=== PATIENT | female | born 1985 | race Caucasian/White ===

== ENCOUNTER 2020-02-03 00:06 | Inpatient (IN) | payer OTHER ==
[~2020-02-03] VITALS: Ht 165.1 cm; Wt 74.0 kg
[~2020-02-03 00:06] MED LIST: AUGMENTIN 875-1 EACH PO; BACTRIM DS TAB1 EACH PO; CIPROFLOXACIN500 MG PO; KEFLEX500 MG PO; SEPTRA DS TABL1 EACH PO
[2020-02-03] MEDS ORDERED: NICOTINE PATCH1 EAC1 TD (01:04)
[2020-02-03] MEDS ORDERED: PROZAC20 MG PO (01:05)
--- NOTE | 2020-02-03 13:17 | PR ---
[facility] [address] [place], [place] [address] Signed Progress Notes IP Datetime Report Generated by CPN: 02/03/2020 13:17 PROGRESS NOTES: [id number] Procedures: Intrauterine Pressure Catheter; Scalp Electrode Plan: Continue present management; Anticipate Vaginal Delivery VITAL SIGNS: [id number] Vital Signs: Reviewed; Within Normal Limits EXAM: [id number] Dilatation: 4.0 Effacement: 100 Station: -2 Uterine Contractions: every 2-3 minutes MEMBRANES: [id number] Membrane Status: Bulging Amniotic Fluid Color: Bloody ROM Note: SROM after previous exam, fluid with slight blood tinge Comments: Comfortable with Ep'idural. Some decreased variabilituy occasional decels, so internal monitors applied and will continue close monitoring Fetus A: [id number] FHR Baseline: 145 Variability: Moderate 6-25bpm Accelerations: 10X10 Presentation: Vertex Fetus B: [id number] Signing Physician: Jase Lopez MD Copies: ~ *Electronically Signed* 02/03/20 1317 JASE LOPEZ MD PATIENT NAME: KYREE BUTT ADELINE PROGRESS NOTE DATE OF : 83 PHYSICIAN: JASE LOPEZ MD RPT #: [id number] REPORT IS CONFIDENTIAL AND NOT TO BE RELEASED WITHOUT AUTHORIZATION
--- NOTE | 2020-02-03 14:57 | PR ---
[facility] [address] [place], [place] [address] Signed Progress Notes IP Datetime Report Generated by CPN: 02/03/2020 14:57 PROGRESS NOTES: [id number] Impression: Normal progression of labor Procedures: Intrauterine Pressure Catheter; Scalp Electrode Plan: Continue present management; Anticipate Vaginal Delivery VITAL SIGNS: [id number] Vital Signs: Reviewed; Within Normal Limits EXAM: [id number] Dilatation: 6.0 Effacement: 100 Station: -2 Uterine Contractions: every 2-4 minutes MEMBRANES: [id number] Membrane Status: Ruptured Amniotic Fluid Color: Clear ROM Note: SROM after previous exam, fluid with slight blood tinge Comments: Comfortable with Epidural, havign decreaed variability with occasional late decels, givne O2 by NC. Now normal variability with some accelerations and continuing to make progress; will continue close monitoring, trying different positions. Fetus A: [id number] FHR Baseline: 145 Variability: Moderate 6-25bpm Accelerations: 10X10 Presentation: Vertex Comments on Fetus A: prior decreased variability and occasional late decels Fetus B: [id number] Signing Physician: Herminio Lopez MD Copies: ~ *Electronically Signed* 02/03/20 1457 HERMINIO LOPEZ MD PATIENT NAME: KYREE BUTT PROGRESS NOTE DATE OF : 83 PHYSICIAN: HERMINIO LOPEZ MD RPT #: [id number] REPORT IS CONFIDENTIAL AND NOT TO BE RELEASED WITHOUT AUTHORIZATION
--- NOTE | 2020-02-03 19:24 | PR ---
[facility] [place] [facility] [address] [facility] [place], [place] [address] Signed Progress Notes IP Datetime Report Generated by CPN: 02/03/2020 19:23 PROGRESS NOTES: [id number] Impression: Normal progression of labor Procedures: Intrauterine Pressure Catheter; Scalp Electrode Plan: Anticipate Vaginal Delivery VITAL SIGNS: [id number] Vital Signs: Reviewed; Within Normal Limits EXAM: [id number] Dilatation: 10.0 Effacement: 100 Station: 0 Uterine Contractions: every 2-4 minutes MEMBRANES: [id number] Membrane Status: Ruptured Amniotic Fluid Color: Clear ROM Note: SROM after previous exam, fluid with slight blood tinge Comments: Comfortable with Epidural. Will try pushing. Continue with Nasal O2 Fetus A: [id number] FHR Baseline: 150 Variability: Moderate 6-25bpm Accelerations: 10X10 Presentation: Vertex Comments on Fetus A: variability changes form moderate to decreased and back again Fetus B: [id number] Signing Physician: Jase Lopez MD Copies: ~ *Electronically Signed* 02/03/20 192 JASE LOPEZ MD PATIENT NAME: KYREE BUTT ADELINE PROGRESS NOTE DATE OF : 83 PHYSICIAN: JASE LOPEZ MD RPT #: [id number] REPORT IS CONFIDENTIAL AND NOT TO BE RELEASED WITHOUT AUTHORIZATION
--- NOTE | 2020-02-03 19:58 | PR ---
[facility] [address] [place], [place] [address] Signed Progress Notes IP Datetime Report Generated by CPN: 02/03/2020 19:58 PROGRESS NOTES: [id number] Impression: Normal progression of labor Procedures: Intrauterine Pressure Catheter; Scalp Electrode Plan: Anticipate Vaginal Delivery VITAL SIGNS: [id number] Vital Signs: Reviewed; Within Normal Limits EXAM: [id number] Dilatation: 10.0 Effacement: 100 Station: 0 Uterine Contractions: every 2-4 minutes MEMBRANES: [id number] Membrane Status: Ruptured Amniotic Fluid Color: Clear ROM Note: SROM after previous exam, fluid with slight blood tinge Comments: Pushing well; will continue Fetus A: [id number] FHR Baseline: 150 Variability: Minimal - Undetectable to <5bpm Accelerations: 15X15 Presentation: Vertex Comments on Fetus A: variability changes form moderate to decreased and back again Fetus B: [id number] Signing Physician: Jase Lopez MD Copies: ~ *Electronically Signed* 02/03/201957 JASE LOPEZ MD PATIENT NAME: KYREE BUTT ADELINE PROGRESS NOTE DATE OF : 83 PHYSICIAN: JASE LOPEZ MD RPT #: [id number] REPORT IS CONFIDENTIAL AND NOT TO BE RELEASED WITHOUT AUTHORIZATION
--- NOTE | 2020-02-04 13:14 | NUR ---
Pt in bed with in arms, eyes closed, respiration even and unlabored. Pt denies c/o at this time, adult male in room with patient and infant.
--- NOTE | 2020-02-04 13:50 | PR ---
[facility] [address] [facility] [place] [address] Signed PP Progress Notes Datetime Report Generated by CPN: 02/04/2020 13:50 SUBJECTIVE: [id number] Pain: Within normal limits Nausea/Vomiting: Denies Vital Signs: [id number] Vital Signs: Reviewed; Within Normal Limits Notable Details: PP Hgb/Hct = 10.8/31.6 EXAM: [id number] Abdomen/Uterus: Normal Lochia: Normal Extremities: Normal IMPRESSION/PLAN/PROCEDURES: [id number] Impression: Normal progression Plan: Discharge Procedures: None Progress Notes: Doing well, without complaitn, wants to go home today Signing Physician: Herminio Lopez MD Copies: ~ *Electronically Signed* 02/04/20 1350 HERMINIO LOPEZ MD PATIENT NAME: KYREE BUTT PROGRESS NOTE DATE OF : 83 PHYSICIAN: HERMINIO LOPEZ MD RPT #: [id number] REPORT IS CONFIDENTIAL AND NOT TO BE RELEASED WITHOUT AUTHORIZATION
--- NOTE | 2020-02-04 14:45 | NUR ---
Pt resting in bed, denies c/o at this time. Infant in basinet, on back, eyes closed, respirations even and unlabored, skin pink. Pt denies pt care needs at thist time.
== END 2020-02-04 21:10 | disposition home or self-care (01) | DRG 806 ==
LOC: FBC 00:06
PROVIDERS: ADMIT Obstetrics & Gynecology
PROC: 10E0XZZ Delivery of Products of Conception, External Approach (ICD-10-PCS; principal; 2020-02-03)
PROC: 0UQGXZZ Repair Vagina, External Approach (ICD-10-PCS; 2020-02-03)
PROC: 3E0P7VZ Introduction of Hormone into Female Reproductive, Via Natural or Artificial Opening (ICD-10-PCS; 2020-02-03)
PROC: 10H07YZ Insertion of Other Device into Products of Conception, Via Natural or Artificial Opening (ICD-10-PCS; 2020-02-03)
PROC: 00HU33Z Insertion of Infusion Device into Spinal Canal, Percutaneous Approach (ICD-10-PCS; 2020-02-03)
PROC: 3E0R3BZ Introduction of Anesthetic Agent into Spinal Canal, Percutaneous Approach (ICD-10-PCS; 2020-02-03)
DX: O48.0 Post-term pregnancy (principal); O71.4 Obstetric high vaginal laceration alone; Z37.0 Single live birth; O99.324 Drug use complicating childbirth; Z3A.41 41 weeks gestation of pregnancy; O76 Abnormality in fetal heart rate and rhythm complicating labor and delivery; O99.02 Anemia complicating childbirth; D64.9 Anemia, unspecified; O99.334 Smoking (tobacco) complicating childbirth; F17.290 Nicotine dependence, other tobacco product, uncomplicated; O99.344 Other mental disorders complicating childbirth; F41.9 Anxiety disorder, unspecified; F10.21 Alcohol dependence, in remission; F19.11 Other psychoactive substance abuse, in remission; Z79.899 Other long term (current) drug therapy
CPT/HCPCS: 01960; 36415; 85027; A9270; J2590; J2795; J3010; J7121